=== PATIENT | female | born 1980 ===

== ENCOUNTER 2018-01-31 06:21 | Inpatient (IN) | payer OTHER ==
[~2018-01-31] VITALS: Ht 170.2 cm; Wt 73.5 kg
== END 2018-02-02 10:29 | DRG 743 ==
LOC: CIR.AMB 06:21 → SURG 07:00 → EDSTATUS 07:00 → CIR.AMB 07:00 → O/R 11:24 → OB/GYN 11:24
PROVIDERS: Obstetrics & Gynecology Maternal & Fetal Medicine
PROC: 0UB10ZZ Excision of Left Ovary, Open Approach (ICD-10-PCS; principal; 2018-01-31 10:15)
DX: D27.1 Benign neoplasm of left ovary (principal)

== ENCOUNTER 2020-03-05 09:36 | Outpatient (CLI) | payer OTHER | END 2020-03-05 09:38 | disposition home or self-care (01) | LOC: SONOGRAMA 09:36 | PROVIDERS: ATTEND Pathology Anatomic Pathology & Clinical Pathology | DX: E04.2 Nontoxic multinodular goiter (principal) ==